=== PATIENT | female | born 1990 | race Caucasian/White ===

== ENCOUNTER 2017-09-06 19:22 | Emergency (ER) | payer MEDICAID, SELFPAY ==
[2017-09-07 00:50] VITALS: BP 129/75; PULSE 96; RESP 19; TEMP 98.1; O2SAT 99
--- NOTE | 2017-09-07 07:37 | OBDCSUM ---
Datetime: 09/06/2017 20:23 Discharged to, Provider: Home Follow up at, Provider: JASMIN Toledo Instr Activity: Normal activity Disch Instr Diet: Regular Discharge Time: 09/06/2017 20:23 Follow up in weeks, Provider: 09/08/2017 @ 11:00 am as scheduled Disch Referrals: None Disch Activity Restrictions: No exercising; No lifting Discharge Diagnosis Prov Other: false labor
--- NOTE | 2017-09-07 07:37 | OBHP ---
Datetime: 09/06/2017 20:23 IP Adm Impression: , intrauterine IP Chief Complaint Other: pelvic pressure IP Admit Plan: Observation/Evaluation; Discharge home Admit Comment, IP Provider: CC: "I feel pressure in my abdomen" HPI: 27 YO @ 35.6 wks IUP presents to [facility] for pelvic pressure. Per pt, she first felt the pr essure this morning around 7AM. She states that she feels it occasionally, and only when she is stand ing up. Denies LOF, VB, CTX and endorses good FM. Indemand used for tranalation, [id number] ObHx: @ 39 weeks for macrosomia 2011. S/p cerclage 05/29/17 for short cervix. GynHx: Hx of HPV, normal pap PMH: denies SurgHx: 2011 SH: denies smoking, illcit drug use, ETOH FH: hx of DM, and HTN. Breast cancer in maternal grandmother Allergies: NKDA Meds: PNV, progesterone vaginally PE: Vitals: Stable GEN: NAD Cardio: S1S2 no M/G/R Resp: vesicular breathing b/l Abdomen: gravid, NT, bs+ Neuro: AAO x 3 Ext: no calf tenderness, no edema Cervx: closed, stitch appreciated FM: 150, with moderate variability-catagory I Assessment/Plan: 27 YO @ 35.6 wks IUP was seen in [facility] to rule out labor. Cervix was clsoed on exam and occasi onal ctx seen on monitor. -continue monitor -vitals -reassess Pt seen and reevaluated. She feels well, denies having any ctx or pressure at this time. On Cervic al exam, pt was closed. monitor is reactive. Will d/c pt to home, pt follow up with provider. N ext apt is on 09/08/17 in [facility]. Pt seen and case discussed with attending Tiffanie Lucas, PGY I Addendum by Dr. Cobb: Patient evaluated and I agree with the above. Patient is a @ 35.5 w ks, cerclage placed for progressive cervical shortening, presents with pressure. VE=closed, FHR= 150 mod kar, +accels, no decels, irritability on the monitor. Patient ruled out for labor, discharged torin e, labor precautions given. F/U in clinic Pelvic Type - PN: Adequate Extremities - PN: Normal Abdomen - PN: Normal Back - PN: Not Done Breast - PN: Not Done Lungs - PN: Normal Heart - PN: Normal Thyroid - PN: Not Done Neurologic - PN: Normal HEENT - PN: Normal General - PN: Normal FHR - Baseline A Provider: 150 Vital Signs Provider: Reviewed; Within Normal Limits IP Chief Complaint: Other NICHD Variability Prov Fetus A: Moderate 6-25bpm NICHD Accel Fetus A IP Provider: [id number] FHR Category Provider Fetus A: Category I Dilatation, Provider: closed Genitourinary Exam: Normal DTRs - PN: Not Done
== END 2017-09-06 20:40 | disposition home or self-care (01) ==
LOC: H.EROB2 19:22
DX: O47.03 False labor before 37 completed weeks of gestation, third trimester (principal); Z3A.35 35 weeks gestation of pregnancy; Z87.59 Personal history of other complications of pregnancy, childbirth and the puerperium; O09.93 Supervision of high risk pregnancy, unspecified, third trimester

== ENCOUNTER 2017-09-21 10:58 | Inpatient (IN) | payer MEDICAID, SELFPAY ==
[2017-09-21 11:32] VITALS: BMI 30.2
[2017-09-21] MEDS ORDERED: Lactated Ringer's 1,000 ML IV SCH ×3 (11:45→18:53)
[2017-09-21] MEDS ORDERED: ceFAZolin IV 2 gm in Dextrose 2 GM/50 ML BAG IVPB ONE (12:00)
[2017-09-21] MEDS ORDERED: Morphine 1 mg/ml preservative-free Inj(Duramorph) ONE (12:36)
[2017-09-21 12:48] LABS: MEAN CELL VOLUME 84.6 fl (81.0-99.0); MEAN CORPUSCULAR HEMOGLOBIN 28.2 pg (27.0-31.0); MEAN CORPUSCULAR HGB CONC 33.3 g/dL (33.0-37.0); RED CELL DISTRIBUTION WIDTH 14.8 % (11.5-14.5); WHITE BLOOD COUNT 11.5 K/uL (4.8-10.8)
[2017-09-21] MEDS ORDERED: Oxytocin 30 UNITS in Sodium Chloride 0.9% 500 ML IV ONE (12:59)
[2017-09-21] MEDS ORDERED: Oxytocin 10 Units/ml Inj ONE (13:49)
[2017-09-21] MEDS ORDERED: Oxycodone/Acetaminophen 5/325 mg Tab PO PRN ×2 (14:44)
[2017-09-21] MEDS ORDERED: DiphenhydrAMINE 50 mg/ml Inj IVP PRN ×2 (14:46→18:53)
[2017-09-21] MEDS ORDERED: Simethicone 80 mg Chewtab PO SCH (16:00)
[2017-09-22] MEDS: Simethicone 80 mg Chewtab PO SCH ×5 (02:23→22:50)
[2017-09-22] MEDS: Oxycodone/Acetaminophen 5/325 mg Tab PO PRN ×5 (02:29→20:55)
[2017-09-22 06:47] LABS: HEMATOCRIT 36.8 % (34.0-47.0); MEAN CELL VOLUME 85.3 fl (81.0-99.0); MEAN CORPUSCULAR HEMOGLOBIN 27.8 pg (27.0-31.0); MEAN CORPUSCULAR HGB CONC 32.6 g/dL (33.0-37.0); RED CELL DISTRIBUTION WIDTH 15.3 % (11.5-14.5); WHITE BLOOD COUNT 11.7 K/uL (4.8-10.8)
--- NOTE | 2017-09-22 16:02 | OBPPN ---
Datetime: 09/22/2017 06:43 PP Pain Prov: Within normal limits PP Nausea Prov: Denies PP Flatus Prov: No PP BM Prov: No PP Breasts Prov: Not Done PP Heart Prov: Normal PP Lungs Prov: Normal PP Abdomen/Uterus Prov: Normal PP Lochia Prov: Normal PP Vulva/Perineum Prov: Normal PP CVA Tenderness Prov: Not Done PP Extremities Prov: Normal PP C/S Incision Prov: Normal PP Progress Prov: Normal PP Comments Phys Exam Prov: WIll remove dressing after 24 hours, looks clean and dry this morning d/c howe this morning PP Progress Note Prov: POD#1 S: pt seen and examined bedside this AM, comfortable in bed. s/p repeat . No complains or acute event overnight. Pt admits pain. Pt is not yet ambulating. Tolerating liquid diet, will advanc e to regular diet this AM. Lochia wnl, like menses. No BM or passing gas. Patient is in clarice. Will remove Howe this morning. Denies fever, chills, headache, chest pain, dyspnea, palpitatio ns, n/v/d/c and remains afebrile. O: VS stable GEN: AA, NAD Cardio: S1S2 no M/G/R Resp: vesicular breathing b/l Abdomen: Dressing looks clean and dry Fundus @ the umbilicus and firm. BS- Neuro: AAO x 3 Ext: no edema noted, no calf tenderness Assessment/Plan: 27 y/o Femal, , delivered at 38 wks, female via repeat on 09/21/17. Doing wel l POD1. OOB with caution Encouraged ambulation and SCD's for DVT prophylaxis Percocet 5/325mg 1-2 tablets po q6 for mod/sev pain Ibuprofen for mild-mod pain Senakot 17.2mg PO qHS Will remove dressing this afternoon, d/c howe Will follow up post op CBC today --- Beryl Thompson, PGY-1 The patient was seen with the resident I agree with the note
[2017-09-23] MEDS: Simethicone 80 mg Chewtab PO SCH ×4 (05:03→22:01)
--- NOTE | 2017-09-24 07:41 | OBDCSUM ---
Datetime: 09/24/2017 06:58 Discharged to, Provider: Home Follow up at, Provider: [facility] clinic Disch Instr Activity: Normal activity Disch Instr Diet: Regular Discharge Instructions, Provider: Routine instructions given Discharge Diagnosis, Provider: Term Delivered Discharge Time: 09/24/2017 10:00 Follow up in weeks, Provider: WC visit 10/01/17 at 9am and PP visit 11/05/17 at 9:30am Disch Referrals: None Contraception discussed, Prov: Yes Discharge Comment, Provider: 27 y/o Femal, , delivered at 38 wks, female via repeat c-sec tion on 09/21/17. Uncomplicated course. Mother is doing well, Lochia is minimal, pt is amb ulating, voiding, tolerating PO regular diet, +/- flatus/BM and remains afebrile. Baby is doing well. 1. Encourage 2. Continue PNV 1 tab/day 3. Ibuprofen/Percocet for pain and Senokot for constipation. 4. Ambulatory with caution, nothing per vagina, no heavy lifting, avoid stairs, if excessive bleed ing or fever without relief from Tylenol go to ED 5. 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
--- NOTE | 2017-09-24 09:10 | OBPPN ---
Datetime: 09/24/2017 06:40 PP Pain Prov: Within normal limits PP Nausea Prov: Denies PP Flatus Prov: Yes PP BM Prov: No PP Heart Prov: Normal PP Lungs Prov: Normal PP Abdomen/Uterus Prov: Normal PP Lochia Prov: Normal PP Vulva/Perineum Prov: Normal PP Extremities Prov: Normal PP C/S Incision Prov: Normal PP Progress Prov: Normal PP Impression Prov: Normal progression PP Plan Prov: Continue present management PP Progress Note Prov: POD#3 S: pt seen and examined bedside this AM, comfortable in bed. s/p repeat . No complains or acute event overnight. Pt admits pain. Pt is ambulating. Tolerating Regular diet. Lochia wnl, like m enses. No BM but passing gas. Patient is infant. no issue voiding. Denies fever, chill s, headache, chest pain, dyspnea, palpitations, n/v/d/c and remains afebrile. O: VS stable GEN: AA, NAD Cardio: S1S2 no M/G/R Resp: vesicular breathing b/l Abdomen: Incision looks clean and dry/ Magdalena Fundus @ the umbilicus and firm. BS+ Neuro: AAO x 3 Ext: no edema noted, no calf tenderness Assessment/Plan: 27 y/o Femal, , delivered at 38 wks, female via repeat on 09/21/17. Doing wel l POD3. OOB with caution Encouraged ambulation and SCD's for DVT prophylaxis Percocet 5/325mg 1-2 tablets po q6 for mod/sev pain Ibuprofen for mild-mod pain Senakot 17.2mg PO qHS Incision care discussed post op CBC 12.2/36.8 Patient is stable for d/c home today --- Beryl Thompson, PGY-1 [facility] Addendum: Pt seen and examined by me. Agree w/ above. POD 3 s/p Repeat c/s and ce rclage removal. Incision w/ steri strips in place. Discharge home today. (ES) IP PP Procedures: None Vital Signs Provider PP: Reviewed; Within Normal Limits Datetime: 09/23/2017 06:23 PP Breasts Prov: Not Done PP CVA Tenderness Prov: Not Done
[2017-09-24] MEDS: Simethicone 80 mg Chewtab PO SCH (10:52)
[2017-09-24 16:29] VITALS: BP 127/66; PULSE 66; RESP 20; TEMP 98; O2SAT 99
== END 2017-09-24 12:00 | disposition home or self-care (01) | DRG 371 ==
LOC: H.EROB2 10:58 → H.L&D 11:32 → H.OB/GYN 18:52
PROVIDERS: ADMIT Obstetrics & Gynecology; ATTEND Obstetrics & Gynecology
PROC: 10D00Z1 Extraction of Products of Conception, Low, Open Approach (ICD-10-PCS; principal; 2017-09-21)
PROC: 0UCC0ZZ Extirpation of Matter from Cervix, Open Approach (ICD-10-PCS; 2017-09-21)
PROC: 4A1HXCZ Monitoring of Products of Conception, Cardiac Rate, External Approach (ICD-10-PCS; 2017-09-21)
DX: O34.211 Maternal care for low transverse scar from previous cesarean delivery (principal); N85.8 Other specified noninflammatory disorders of uterus; O42.02 Full-term premature rupture of membranes, onset of labor within 24 hours of rupture; Z37.0 Single live birth; Z3A.38 38 weeks gestation of pregnancy